=== PATIENT | male | born 1965 | race Native Hawaiian/Other Pacific Islander ===

== ENCOUNTER 2019-04-19 12:07 | Inpatient (IN) | payer OTHER ==
[~2019-04-19] VITALS: Ht 180.3 cm; Wt 96.6 kg
[2019-04-19 13:58] LABS: PLATELET COUNT 207 K/uL (142-355)
[2019-04-19 14:14] VITALS: BP 176/85; TEMP 98.2; Ht 180.3 cm; Wt 96.6 kg
[2019-04-19 14:17] LABS: POTASSIUM 3.6 mmol/L (3.6-5.2)
[2019-04-19] MEDS ORDERED: GLIM4TAB PO (14:28)
[2019-04-19 16:01] VITALS: BP 148/87; TEMP 98.5
[2019-04-19 20:00] VITALS: BP 145/81; TEMP 100.5
[2019-04-19 23:52] VITALS: BP 133/82; TEMP 99.5
[2019-04-20 04:04] VITALS: TEMP 96.8; TEMP 98.3
[2019-04-20 04:58] LABS: PLATELET COUNT 204 K/uL (142-355)
[2019-04-20 05:35] LABS: POTASSIUM 3.5 mmol/L (3.6-5.2)
[2019-04-20 08:03] VITALS: BP 144/77; TEMP 98.2
[2019-04-20 12:00] VITALS: BP 141/77; TEMP 97.5
[2019-04-20 20:00] VITALS: BP 156/72; TEMP 99.1
[2019-04-20 23:54] VITALS: BP 125/51; TEMP 98.3
[2019-04-21 03:54] VITALS: BP 125/57; TEMP 98.4
[2019-04-21 05:25] LABS: PLATELET COUNT 212 K/uL (142-355)
[2019-04-21 05:49] LABS: POTASSIUM 3.4 mmol/L (3.6-5.2)
[2019-04-21 08:00] VITALS: BP 154/83; TEMP 98.4
[2019-04-21 12:00] VITALS: BP 177/91; TEMP 98.4
[2019-04-21 16:00] VITALS: BP 145/70; TEMP 98.3
[2019-04-21 20:00] VITALS: BP 154/70; TEMP 99.3
[2019-04-22] VITALS: BP 142/98; TEMP 98.9
[2019-04-22 04:00] VITALS: BP 168/78; TEMP 100.2
[2019-04-22 05:31] LABS: PLATELET COUNT 244 K/uL (142-355)
[2019-04-22 06:07] LABS: POTASSIUM 3.5 mmol/L (3.6-5.2)
[2019-04-22 08:28] VITALS: BP 149/76; TEMP 98.7
[2019-04-22 12:04] VITALS: BP 136/85; TEMP 98.3
[2019-04-22 16:05] VITALS: BP 169/82; TEMP 98.1
[2019-04-22 20:00] VITALS: BP 173/75; TEMP 99.6
== END 2019-04-22 21:00 | disposition short-term general hospital (02) | DRG 501 ==
LOC: MED/SURG 12:07
PROVIDERS: ADMIT Internal Medicine
PROC: 0Y6T0Z0 Detachment at Right 3rd Toe, Complete, Open Approach (ICD-10-PCS; principal; 2019-04-20)
PROC: 02HV33Z Insertion of Infusion Device into Superior Vena Cava, Percutaneous Approach (ICD-10-PCS; 2019-04-22)
PROC: 0QDQ0ZZ Extraction of Right Toe Phalanx, Open Approach (ICD-10-PCS; 2019-04-22)
DX: M86.171 Other acute osteomyelitis, right ankle and foot (principal); L03.115 Cellulitis of right lower limb; B37.0 Candidal stomatitis; E11.52 Type 2 diabetes mellitus with diabetic peripheral angiopathy with gangrene; I96 Gangrene, not elsewhere classified; L02.611 Cutaneous abscess of right foot; E11.69 Type 2 diabetes mellitus with other specified complication; E11.65 Type 2 diabetes mellitus with hyperglycemia; B95.4 Other streptococcus as the cause of diseases classified elsewhere; I10 Essential (primary) hypertension; E66.01 Morbid (severe) obesity due to excess calories
CPT/HCPCS: 36415; 36571; 80053; 80202; 81000; 83036; 85027; 85651; 86141; 87040; 87070; 87077; 87185; 87186; 87205; 93005; A9561; C1751; J1650; J2001; J2543; J2704; J3370; J3490

== ENCOUNTER 2019-04-22 21:04 | Outpatient (CLI) | payer OTHER ==
[~2019-04-22 21:04] MED LIST: GLIM4TAB PO
== END 2019-04-22 22:29 | disposition short-term general hospital (02) ==
LOC: AMB 21:04
DX: L08.89 Other specified local infections of the skin and subcutaneous tissue (principal)
CPT/HCPCS: A0425; A0427

== ENCOUNTER 2020-10-04 08:15 | Outpatient (CLI) | payer OTHER | END 2020-10-04 22:04 | disposition home or self-care (01) | LOC: INF 08:15 | PROVIDERS: ATTEND Internal Medicine | DX: Z23 Encounter for immunization (principal) | CPT/HCPCS: 96372 ==

== ENCOUNTER 2020-10-25 08:14 | Outpatient (CLI) | payer OTHER | END 2020-10-25 20:04 | disposition home or self-care (01) | LOC: INF | PROVIDERS: ATTEND Internal Medicine | DX: Z23 Encounter for immunization (principal) | CPT/HCPCS: 96372 ==